=== PATIENT | male | born 1980 | race Caucasian/White ===

== ENCOUNTER 2020-03-15 11:44 | Outpatient (CLI) | payer BC, OTHER ==
[~2020-03-15 11:44] MED LIST: SULF1TAB44 PO
[2020-03-15 12:33] LABS: BASOPHILS % (AUTO) 0.6 % (0.0-2.0); EOSINOPHILS # (AUTO) 0.2 K/uL (0.0-0.7); EOSINOPHILS % (AUTO) 2.7 % (0.0-7.0); HEMATOCRIT 44.9 % (36.7-47.1); HEMOGLOBIN 15.8 g/dL (12.5-16.3); LYMPHOCYTES # (AUTO) 2.5 K/uL (20.0-40.0); LYMPHOCYTES % (AUTO) 37.3 % (20.5-51.5); MEAN CORPUSCULAR HEMOGLOBIN 32.9 uug (23.8-33.4); MEAN CORPUSCULAR HGB CONC 35 g/dL (32.5-36.3); MEAN CORPUSCULAR VOLUME 93.6 fL (73.0-96.2); MONOCYTES # (AUTO) 0.6 K/uL (2.0-10.0); MONOCYTES % (AUTO) 8.7 % (0.0-11.0); NEUTROPHILS # (AUTO) 3.3 K/uL (1.8-8.9); NEUTROPHILS % (AUTO) 50.7 % (38.5-71.5); PLATELET COUNT (AUTO) 221 K/uL (152-348); WHITE BLOOD COUNT (AUTO) 6.6 K/uL (3.6-10.2)
[2020-03-15 13:16] LABS: BILIRUBIN,TOTAL 0.9 mg/dL (0.2-1.0); POTASSIUM 3.6 mmol/L (3.5-5.1); TOTAL PROTEIN, SERUM 7.9 g/dL (6.4-8.2); URIC ACID 5.8 mg/dL (3.5-7.2)
[2020-03-15 13:28] LABS: *BILIRUBIN,URIN NEGATIVE (NEGATIVE); *BLOOD, URINE NEGATIVE (NEGATIVE); *CLARITY,URINE CLEAR (CLEAR); *COLOR,URINE YELLOW (YELLOW); *KETONES,URINE NEGATIVE (NEGATIVE); *UROBILINOGEN,URINE 0.2 E.U./dl (NORMAL); LEUKOCYTE ESTERASE ,URINE NEGATIVE (NEGATIVE); NITRITE, URINE NEGATIVE (NEGATIVE); PH,URINE 5.5 (5.0-8.0); UGLUCOSE NEGATIVE (NEGATIVE)
[2020-03-15 13:37] LABS: THYROID STIMULATING HORMONE 1.677 mIU/mL (0.358-3.740)
[2020-03-16 09:08] LABS: *TESTOSTERONE, SERUM 466 ng/dL (264-916)
== END 2020-03-15 23:59 | disposition home or self-care (01) ==
LOC: LAB 11:44
PROVIDERS: ATTEND Legal Medicine
DX: Z00.00 Encounter for general adult medical examination without abnormal findings (principal); R10.9 Unspecified abdominal pain
CPT/HCPCS: 36415; 82306; 82785; 83550; 83690; 84153; 84402; 84403; 84443; 84550; 85025; 85651; 86140

== ENCOUNTER 2021-05-16 10:20 | Outpatient (CLI) | payer BC, OTHER ==
[2021-05-16 10:41] LABS: *BILIRUBIN,URIN 1+ (NEGATIVE); *BLOOD, URINE NEGATIVE (NEGATIVE); *CLARITY,URINE CLEAR (CLEAR); *COLOR,URINE YELLOW (YELLOW); *KETONES,URINE NEGATIVE (NEGATIVE); *UROBILINOGEN,URINE 0.2 E.U./dl (NORMAL); LEUKOCYTE ESTERASE ,URINE NEGATIVE (NEGATIVE); NITRITE, URINE NEGATIVE (NEGATIVE); UGLUCOSE NEGATIVE (NEGATIVE)
[2021-05-16 10:53] LABS: HEMATOCRIT 47.2 % (36.7-47.1); MEAN CORPUSCULAR HEMOGLOBIN 33.8 uug (23.8-33.4); MEAN CORPUSCULAR VOLUME 97.8 fL (73.0-96.2); PLATELET COUNT (AUTO) 214 K/uL (152-348)
[2021-05-16 11:30] LABS: BILIRUBIN,TOTAL 0.9 mg/dL (0.2-1.0); CREATININE 0.9 mg/dL (0.6-1.3); POTASSIUM 3.8 mmol/L (3.5-5.1); TOTAL PROTEIN, SERUM 7.4 g/dL (6.4-8.2); URIC ACID 6.2 mg/dL (3.5-7.2)
[2021-05-16 12:25] LABS: THYROID STIMULATING HORMONE 2.462 mIU/mL (0.358-3.740)
== END 2021-05-16 23:59 | disposition home or self-care (01) ==
LOC: LAB 10:20
PROVIDERS: ATTEND Legal Medicine
DX: E03.9 Hypothyroidism, unspecified (principal); D64.9 Anemia, unspecified; N40.0 Benign prostatic hyperplasia without lower urinary tract symptoms; E55.9 Vitamin D deficiency, unspecified; R10.9 Unspecified abdominal pain; I12.9 Hypertensive chronic kidney disease with stage 1 through stage 4 chronic kidney disease, or unspecified chronic kidney disease; E11.22 Type 2 diabetes mellitus with diabetic chronic kidney disease; N18.9 Chronic kidney disease, unspecified; E78.5 Hyperlipidemia, unspecified; Z00.00 Encounter for general adult medical examination without abnormal findings
CPT/HCPCS: 70030-TC; 82746; 83550; 84402; 84403; 84443; 84550; 85025

== ENCOUNTER 2021-10-26 20:00 | Emergency (ER) | payer BC, OTHER ==
[~2021-10-26] VITALS: Ht 177.8 cm; Wt 86.2 kg
[2021-10-26] MEDS ORDERED: IVER3TAB2 PO (20:04)
[2021-10-26 21:06] LABS: HEMATOCRIT 44.4 % (36.7-47.1); MEAN CORPUSCULAR VOLUME 97.8 fL (73.0-96.2); PLATELET COUNT (AUTO) 195 K/uL (152-348)
[2021-10-26 21:17] LABS: BILIRUBIN,DIRECT 0.1 mg/dL (0.0-0.2); BILIRUBIN,TOTAL 0.4 mg/dL (0.2-1.0); CREATININE 0.8 mg/dL (0.6-1.3); POTASSIUM 3.5 mmol/L (3.5-5.1); TOTAL PROTEIN, SERUM 8.3 g/dL (6.4-8.2)
[2021-10-26] MEDS ORDERED: AMOX-430 PO ×2 (22:35)
[2021-10-26] MEDS ORDERED: LEVO750T46 PO (22:35)
--- NOTE | 2021-10-26 22:38 | NUR ---
Patient discharged to home in stable condition. Written and verbal after care instructions given. Patient verbalizes understanding of instructions. Stressed follow up or return to ER for worsening s/s.
[2021-10-26 22:39] VITALS: BP 138/88
[2021-10-26 23:52] LABS: *BILIRUBIN,URIN 1+ (NEGATIVE); *BLOOD, URINE NEGATIVE (NEGATIVE); *CLARITY,URINE CLOUDY (CLEAR); *COLOR,URINE YELLOW (YELLOW); *KETONES,URINE 1+ (NEGATIVE); *UROBILINOGEN,URINE 0.2 E.U./dl (NORMAL); LEUKOCYTE ESTERASE ,URINE NEGATIVE (NEGATIVE); NITRITE, URINE NEGATIVE (NEGATIVE); PH,URINE 5.5 (5.0-8.0); UGLUCOSE NEGATIVE (NEGATIVE)
[2021-10-27 00:07] LABS: BACTERIA,URINE NONE SEEN /HPF (NONE SEEN); RBC,URINE NONE SEEN /HPF (0-3); SQUAMOUS EPITHELIAL CELL,UR NONE SEEN /HPF (NONE SEEN); URINE AMORPHOUS URATE MANY /HPF; WBC,URINE NONE SEEN /HPF (0-3)
== END 2021-10-26 22:40 | disposition home or self-care (01) ==
LOC: ER 20:02
DX: R10.12 Left upper quadrant pain (principal); Z87.19 Personal history of other diseases of the digestive system; Z82.49 Family history of ischemic heart disease and other diseases of the circulatory system; R03.0 Elevated blood-pressure reading, without diagnosis of hypertension
CPT/HCPCS: 36415; 71045; 83690; 85025; A4663

== ENCOUNTER → 2022-03-18 | Outpatient (CLI) | payer BC, OTHER ==
[~2022-03-18] MED LIST changes: +AMOX-430 PO; +LEVO750T46 PO; -SULF1TAB44 PO
[2022-03-18 10:44] LABS: HEMATOCRIT 45.9 % (36.7-47.1); MEAN CORPUSCULAR HEMOGLOBIN 34.8 uug (23.8-33.4); MEAN CORPUSCULAR VOLUME 98.1 fL (73.0-96.2); PLATELET COUNT (AUTO) 222 K/uL (152-348)
[2022-03-18 11:00] LABS: BILIRUBIN,DIRECT 0.2 mg/dL (0.0-0.2); BILIRUBIN,TOTAL 0.9 mg/dL (0.2-1.0); CREATININE 0.7 mg/dL (0.6-1.3); POTASSIUM 3.6 mmol/L (3.5-5.1); TOTAL PROTEIN, SERUM 7.6 g/dL (6.4-8.2)
[2022-03-18 11:08] LABS: THYROID STIMULATING HORMONE 3.548 mIU/mL (0.358-3.740)
== END | disposition home or self-care (01) ==
LOC: LAB 10:24
DX: R21 Rash and other nonspecific skin eruption (principal)
CPT/HCPCS: 36415; 84443; 85025

== ENCOUNTER 2022-08-07 12:23 | Outpatient (CLI) | payer BC, OTHER ==
[2022-08-07 14:41] LABS: IRON, SERUM 290 ug/dL (50-175)
== END 2022-08-07 23:59 | disposition home or self-care (01) ==
LOC: LAB 12:23
PROVIDERS: ATTEND Legal Medicine
DX: E83.110 Hereditary hemochromatosis (principal)
CPT/HCPCS: 36415; 83550

== ENCOUNTER 2022-09-12 13:25 | Outpatient (CLI) | payer BC, OTHER ==
[2022-09-13 07:07] LABS: *CELIAC IMMUNOGLOBULIN A 422 mg/dL (90-386)
[2022-09-15 11:06] LABS: *CELIAC T-TRANSGLUTAMINASE IGA <2 U/mL (0-3); *CELIAC T-TRANSGLUTAMINASE IGG <2 U/mL (0-5)
[2022-09-15 13:06] LABS: *CELIAC DEAMIDATED GLIADIN IGA 9 units (0-19); *CELIAC DEAMIDATED GLIADIN IGG 2 units (0-19)
== END 2022-09-12 23:59 | disposition home or self-care (01) ==
LOC: LAB 13:25
PROVIDERS: ATTEND Legal Medicine
DX: R19.7 Diarrhea, unspecified (principal)
CPT/HCPCS: 36415

== ENCOUNTER 2023-03-11 10:12 | Outpatient (CLI) | payer BC, OTHER ==
[2023-03-11 11:09] LABS: BILIRUBIN,TOTAL 0.8 mg/dL (0.2-1.0); CREATININE 0.7 mg/dL (0.6-1.3); POTASSIUM 3.6 mmol/L (3.5-5.1)
[2023-03-11 12:44] LABS: HEMATOCRIT 43.5 % (36.7-47.1); MEAN CORPUSCULAR HEMOGLOBIN 35.3 uug (23.8-33.4); MEAN CORPUSCULAR VOLUME 101.5 fL (73.0-96.2); PLATELET COUNT (AUTO) 206 K/uL (152-348)
== END 2023-03-11 23:59 | disposition home or self-care (01) ==
LOC: LAB 10:12
PROVIDERS: ATTEND Internal Medicine Hematology & Oncology
DX: Z13.228 Encounter for screening for other metabolic disorders (principal); D64.9 Anemia, unspecified
CPT/HCPCS: 36415; 83550; 85025

== ENCOUNTER 2023-03-25 09:12 | Outpatient (CLI) | payer BC, OTHER ==
[2023-03-25 09:29] LABS: HEMATOCRIT 43.1 % (36.7-47.1); MEAN CORPUSCULAR HEMOGLOBIN 35.6 uug (23.8-33.4); MEAN CORPUSCULAR VOLUME 101.5 fL (73.0-96.2); PLATELET COUNT (AUTO) 191 K/uL (152-348)
[2023-03-25 10:00] LABS: BILIRUBIN,TOTAL 0.9 mg/dL (0.2-1.0); CREATININE 0.7 mg/dL (0.6-1.3); POTASSIUM 3.3 mmol/L (3.5-5.1)
== END 2023-03-25 23:59 | disposition home or self-care (01) ==
LOC: LAB 09:12
PROVIDERS: ATTEND Internal Medicine Hematology & Oncology
DX: Z13.228 Encounter for screening for other metabolic disorders (principal); D64.9 Anemia, unspecified
CPT/HCPCS: 36415; 83550; 85025

== ENCOUNTER 2023-04-01 10:56 | Outpatient (CLI) | payer BC, OTHER ==
[2023-04-01 11:16] LABS: HEMATOCRIT 45.2 % (36.7-47.1); MEAN CORPUSCULAR HEMOGLOBIN 35.1 uug (23.8-33.4); MEAN CORPUSCULAR VOLUME 102.6 fL (73.0-96.2); PLATELET COUNT (AUTO) 193 K/uL (152-348)
[2023-04-01 11:56] LABS: BILIRUBIN,TOTAL 0.9 mg/dL (0.2-1.0); CREATININE 0.7 mg/dL (0.6-1.3); POTASSIUM 3.7 mmol/L (3.5-5.1); TOTAL PROTEIN, SERUM 7.3 g/dL (6.4-8.2)
== END 2023-04-01 23:59 | disposition home or self-care (01) ==
LOC: LAB 10:56
PROVIDERS: ATTEND Legal Medicine
DX: Z13.228 Encounter for screening for other metabolic disorders (principal); D64.9 Anemia, unspecified
CPT/HCPCS: 36415; 83550; 85025

== ENCOUNTER 2023-04-15 10:29 | Outpatient (CLI) | payer BC, OTHER ==
[2023-04-15 10:55] LABS: HEMATOCRIT 45.4 % (36.7-47.1); MEAN CORPUSCULAR HEMOGLOBIN 35.9 uug (23.8-33.4); MEAN CORPUSCULAR VOLUME 102.2 fL (73.0-96.2); PLATELET COUNT (AUTO) 190 K/uL (152-348)
[2023-04-15 11:26] LABS: BILIRUBIN,TOTAL 0.8 mg/dL (0.2-1.0); CREATININE 0.7 mg/dL (0.6-1.3); POTASSIUM 3.3 mmol/L (3.5-5.1); TOTAL PROTEIN, SERUM 7.6 g/dL (6.4-8.2)
== END 2023-04-15 23:59 | disposition home or self-care (01) ==
LOC: LAB 10:29
PROVIDERS: ATTEND Internal Medicine Hematology & Oncology
DX: D75.0 Familial erythrocytosis (principal)
CPT/HCPCS: 83550; 85025